=== PATIENT | female | born 1995 | race Caucasian/White ===

== ENCOUNTER 2017-10-20 17:10 | Emergency (ER) | payer SELFPAY ==
[2017-10-20 17:56] VITALS: BP 121/75
--- NOTE | 2017-10-20 18:26 | ED ---
Respiratory - HPI Summary HPI Summary: 22 yr old with couple days of myalgias, fever, chills, fatigue, runny nose, sore throat and cough. She states she feels she has the flu. Denies SOB. No other complaints. - History of Current Complaint Chief Complaint: UCGeneralIllness Stated Complaint: HEADACHE/CHILLS/BODY ACHES/NAUSEA Time Seen by Provider: 10/20/17 18:00 Pain Intensity: 9 - Allergy/Home Medications Allergies/Adverse Reactions: Allergies Allergy/AdvReac Type Severity Reaction Status Date / Time No Known Allergies Allergy Verified 10/20/17 17:56 Home Medications: Home Medications FLUoxetine* [PROzac*] 10 mg PO DAILY 10/20/17 [History Confirmed 10/20/17] Ibuprofen TAB* [Motrin TAB* 400 MG] 400 mg PO Q6H PRN 10/20/17 [History Confirmed 10/20/17] medroxyPROGESTERone ACETATE* [DEPO-Provera*] 150 mg IM MONTHLY 10/20/17 [ History Confirmed 10/20/17] PMH/Surg Hx/FS Hx/Imm Hx - Surgical History Hx Anesthesia Reactions: No Infectious Disease History: No Infectious Disease History: Denies: Traveled Outside the [place] in Last 30 Days - Family History Known Family History: Positive: None - Social History Occupation: Employed Full-time Lives: With Family Alcohol Use: Rare Substance Use Type: Reports: None Smoking Status (MU): Never Smoked Tobacco Review of Systems Positive: Fever, Chills, Fatigue Positive: Sore Throat, Nasal Discharge Positive: Cough Positive: Myalgia All Other Systems Reviewed And Are Negative: Yes Physical Exam Triage Information Reviewed: Yes Vital Signs On Initial Exam: Initial Vitals Temp Pulse Resp BP Pulse Ox 99.1 F 119 16 121/75 97 10/20/17 17:51 10/20/17 17:51 10/20/17 17:51 10/20/17 17:51 10/20/17 17:51 Vital Signs Reviewed: Yes Appearance: Positive: Well-Appearing, No Pain Distress Skin: Positive: Warm, Skin Color Reflects Adequate Perfusion Head/Face: Positive: Normal Head/Face Inspection Eyes: Positive: EOMI ENT: Positive: Pharyngeal erythema, Nasal congestion, Nasal drainage, TMs normal Neck: Positive: Nontender Respiratory/Lung Sounds: Positive: Clear to Auscultation, Breath Sounds Present Cardiovascular: Positive: RRR. Negative: Murmur Abdomen Description: Positive: Nontender Musculoskeletal: Positive: Strength/ROM Intact Neurological: Positive: Sensory/Motor Intact, Alert, Oriented to Person Place, Time, CN Intact II-III Psychiatric: Positive: Normal - Xi Coma Scale Best Eye Response: 4 - Spontaneous Best Motor Response: 6 - Obeys Commands Best Verbal Response: 5 - Oriented Coma Scale Total: 15 Diagnostics - Vital Signs Vital Signs Temp Pulse Resp BP Pulse Ox 10/20/17 17:51 99.1 F 119 16 121/75 97 - Laboratory Lab Results: Lab Results 10/20/17 Range/Units 18:04 Influenza A (Rapid) Positive H (Negative) Influenza B (Rapid) Negative (Negative) Lab Statement: Any lab studies that have been ordered have been reviewed, and results considered in the medical decision making process. Disposition - Course Course Of Treatment: 22 yr old with influenza symptoms. Plan DC home on tamiflu - Diagnoses Provider Diagnoses: Influenza Discharge - Discharge Plan Condition: Good Disposition: HOME Prescriptions: Oseltamivir CAP* [Tamiflu CAP*] 75 mg PO BID #10 cap Patient Education Materials: Influenza (ED) Forms: *Work Release Referrals: No Primary Care Phys,NOPCP [Primary Care Provider] - [facility] [Outside]
== END 2017-10-20 18:36 | disposition home or self-care (01) ==
LOC: UCCORT 17:10
DX: J11.1 Influenza due to unidentified influenza virus with other respiratory manifestations (principal)
CPT/HCPCS: 87502; 99212; G0463